=== PATIENT | male | born 1975 | race African-American/Black ===

== ENCOUNTER 2019-09-12 10:27 | Emergency (ER) | payer MEDICAID ==
[~2019-09-12] VITALS: Ht 170.2 cm; Wt 74.8 kg
[2019-09-12 10:45] VITALS: BP_SYST 135
[2019-09-12] MEDS ORDERED: KETOROLAC TROMETHAMINE 60 MG/2 ML VIAL IM ONE (11:30)
[2019-09-12 11:43] VITALS: BP_SYST 135
== END 2019-09-12 11:43 | disposition home or self-care (01) ==
LOC: SED 10:27
DX: F29 Unspecified psychosis not due to a substance or known physiological condition (principal); F17.200 Nicotine dependence, unspecified, uncomplicated; F31.9 Bipolar disorder, unspecified; Z88.5 Allergy status to narcotic agent; Z71.6 Tobacco abuse counseling
CPT/HCPCS: 96372; 99283; J1885

== ENCOUNTER 2021-05-02 20:54 | Emergency (ER) | payer MEDICAID ==
[~2021-05-02] VITALS: Ht 167.6 cm; Wt 77.1 kg
[2021-05-02 21:00] VITALS: BP_SYST 167
--- NOTE | 2021-05-02 21:13 | NUR ---
Placed in room 8 . Placed on compliance monitor, blood pressure machine and pulse oximeter. To gown for exam. Side rails up. Report given to Jessy BURGOS.
--- NOTE | 2021-05-02 21:15 | NUR ---
Assumed total care of patient. Patient AAO x4 from home c/o ingesting 6 tablets of 300mg [place] about an hour ago. Patient states he "wanted to stop the ringing in his head". Patient denies SI/HI. Patient reports he is having hallucinations but does not want to talk more about it. Patient reports chest pain 2/10 that started just now. Patient reports dizzines. Patient denies nausea, vomiting, fever, chills. Patient placed on fender repairer, VSS, breathing even and unlabored, no signs of acute distress noted. Will continue to monitor.
--- NOTE | 2021-05-02 21:15 | NUR ---
Patient reports history of high blood pressure, bipolar manic, and schizophrenia.
--- NOTE | 2021-05-02 21:20 | NUR ---
# 18 gauge angiocath placed to left forearm. Use of asceptic technique. Opsite placed over site. Blood return noted. Blood for lab drawn from site. Flushed with 10 cc of normal saline. No evidence of infiltration noted. Patient tolerated well.
--- NOTE | 2021-05-02 21:35 | NUR ---
ER Dr. Swift at bedside examining patient.
--- NOTE | 2021-05-02 21:37 | NUR ---
Called Poison Control at [phone] and spoke with Boaz. Per recommendations: Patient may experience nausea/vomiting, tachycardia, seizures, QT prolongation. Lab draw for chemistry, tylenol, aspirin, alochol levels, and lithium 2-4hours. Give IV NS fluids. Dr. Swift notified. Will continue to monitor patient.
[2021-05-02 21:39] LABS: BASOPHILS % (AUTO) 0.9 % (0.0-2.0); EOSINOPHILS # (AUTO) 0.1 K/uL (0.0-0.4); EOSINOPHILS % (AUTO) 2.2 % (0.0-4.0); HEMATOCRIT 39.3 % (36-54); HEMOGLOBIN 13.6 g/dL (14.0-18.0); LYMPHOCYTES # (AUTO) 1.6 K/uL (1.0-5.5); LYMPHOCYTES % (AUTO) 27.8 % (20.5-51.5); MEAN CORPUSCULAR HEMOGLOBIN 31 pg (27-31); MEAN CORPUSCULAR HGB CONC 35 % (32-36); MEAN CORPUSCULAR VOLUME 90 fL (79.0-98.0); MONOCYTES # (AUTO) 0.4 K/uL (0.0-1.0); NEUTROPHILS # (AUTO) 3.5 K/uL (1.8-7.7); NEUTROPHILS % (AUTO) 62.1 % (40.0-70.0); PLATELET COUNT (AUTO) 224 K/uL (130-430); RED BLOOD CELL COUNT(AUTO) 4.36 MIL/uL (4.2-6.2); WHITE BLOOD COUNT (AUTO) 5.6 K/uL (4.8-10.8)
[2021-05-02] MEDS ORDERED: NACL 0.9% 1,000 ML IV ONE (21:45)
[2021-05-02 22:04] LABS: CALCIUM 9.4 mg/dL (8.4-11.0); CREATININE 1.06 mg/dL (0.55-1.30); POTASSIUM 3.5 mmol/L (3.5-5.1)
[2021-05-02 22:10] LABS: ALBUMIN 4.1 g/dL (3.4-4.8); TOTAL BILIRUBIN 0.4 mg/dL (0.0-1.0)
[2021-05-02 22:51] LABS: ACETAMINOPHEN < 1 ug/mL (1-30); ALCOHOL, BLOOD < 3 mg/dL (<10)
--- NOTE | 2021-05-02 22:56 | NUR ---
Patient given some water to drink and urinal at bedside.
--- NOTE | 2021-05-02 23:00 | NUR ---
Urine collected and sent to lab.
--- NOTE | 2021-05-02 23:28 | NUR ---
Patient resting quietly. No acute distress noted. Vital signs within normal range. Patient given warm blanket.
[2021-05-02 23:32] LABS: BARBITURATE, URINE NEGATIVE (NEG <=200); BENZODIAZEPINE, URINE NEGATIVE (NEG <=150); CANNABINOID, URINE POSITIVE (NEG <=50); COCAINE, URINE NEGATIVE (NEG <=150); METHAMPHETAMINES SCREEN,URINE POSITIVE (NEG <=500); OPIATE, URINE NEGATIVE (NEG <=100); PHENCYCLIDINE SCREEN,URINE NEGATIVE (NEG <=25); UR TRICYCLIC ANTIDEPRESSANTS NEGATIVE (NEG <=300); URINE AMPHETAMINE POSITIVE (NEG <=500); URINE METHADONE NEGATIVE (NEG <=200); URINE OXYCODONE SCREEN NEGATIVE (NEG <=100); URINE PROPOXYPHENE SCREEN NEGATIVE (NEG <=300)
--- NOTE | 2021-05-03 00:28 | NUR ---
Patient resting quietly. No acute distress noted. Vital signs within normal range.
--- NOTE | 2021-05-03 01:28 | NUR ---
Patient resting quietly. No acute distress noted. Vital signs within normal range.
--- NOTE | 2021-05-03 02:40 | NUR ---
Psych consultation placed with Psych team by Community Health Director.
--- NOTE | 2021-05-03 03:28 | NUR ---
Patient resting quietly. No acute distress noted. Vital signs within normal range.
--- NOTE | 2021-05-03 04:28 | NUR ---
Patient resting quietly. No acute distress noted. Vital signs within normal range.
--- NOTE | 2021-05-03 05:28 | NUR ---
Patient resting quietly. No acute distress noted. Vital signs within normal range.
--- NOTE | 2021-05-03 07:05 | NUR ---
Assumed care of Pt. Pt is resting quietly in no distress awaiting psych evaluation.
--- NOTE | 2021-05-03 07:36 | NUR ---
Dr. Pineda at bedside to assess.
--- NOTE | 2021-05-03 07:55 | NUR ---
Pt provided a breakfast tray.
[2021-05-03 08:42] LABS: CALCIUM 9.3 mg/dL (8.4-11.0); CREATININE 0.92 mg/dL (0.55-1.30); POTASSIUM 3.9 mmol/L (3.5-5.1)
--- NOTE | 2021-05-03 08:44 | NUR ---
manager trade marketing Sherley at bedside to assess.
[2021-05-03 08:52] VITALS: BP_SYST 126
--- NOTE | 2021-05-03 08:52 | NUR ---
Patient given written and verbal discharge instructions and verbalizes understanding. Dr. Félix MELARA MD discussed with patient the results and treatment provided. Patient in stable condition. ID arm band removed. IV catheter removed intact and dressing applied, no active bleeding. Patient educated on pain management and to follow up with PMD. Pain Scale 0/10. Opportunity for questions provided and answered.
[2021-05-03 12:53] LABS: LITHIUM 1.76 mEq/L (0.50-1.0)
--- NOTE | 2021-05-03 13:53 | NUR ---
Spoke w/ patient-he was given resources for detox programs in the area. He stated understanding of information given.
[2021-05-03 15:40] LABS: LITHIUM 0.73 mEq/L (0.50-1.0)
== END 2021-05-03 08:52 | disposition home or self-care (01) ==
LOC: SED 20:54
DX: T56.892A Toxic effect of other metals, intentional self-harm, initial encounter (principal); Z79.899 Other long term (current) drug therapy; Y92.89 Other specified places as the place of occurrence of the external cause
CPT/HCPCS: 36415; 80048; 80053; 80178; 80307; 85025; 93005; 96360; 99291; G0480; J7030; G0481; G0482